=== PATIENT | male | born 1980 | race Caucasian/White ===

== ENCOUNTER 2016-07-29 16:46 | Emergency (ER) | payer OTHER ==
--- NOTE | 2016-07-29 18:21 | ED ---
General Adult HPI - General Chief complaint: Extremity Injury, Upper Stated complaint: Left Thumb Pain Time Seen by Provider: 07/29/16 18:01 Source: patient, RN notes reviewed Mode of arrival: ambulatory Limitations: no limitations - History of Present Illness Initial comments: This is a 35-year-old male presents with chronic left thumb pain. Patient states he has had multiple injuries to the left thumb over the last 3 years and has never had them checked out. Patient states the pain over the last 3 months has been increasing. Patient states over the last 2 days the pain has been worse. Patient denies any recent injury to the left thumb that could have caused the increased pain. Patient admits to some increased swelling to the left thumb and difficulty flexing and extending the thumb of the left hand. Patient states he is going on vacation and was hoping to not be in pain during vacation. Patient states he works with his hands for his job. Patient denies any numbness/tingling or weakness. Patient denies any recent fever, chills, shortness breath, chest pain, abdominal pain, nausea/vomiting/diarrhea, back pain, hematuria, headache, or visual changes, or any other complaints. - Related Data Home Medications Medication Instructions Recorded Confirmed No Known Home Medications [No 10/25/14 07/29/16 Known Home Medications] Allergies Allergy/AdvReac Type Severity Reaction Status Date / Time No Known Allergies Allergy Verified 07/29/16 18:24 Review of Systems ROS Statement: Those systems with pertinent positive or pertinent negative responses have been documented in the HPI. ROS Other: All systems not noted in ROS Statement are negative. Past Medical History Past Medical History: No Reported History History of Any Multi-Drug Resistant Organisms: None Reported Past Surgical History: Hernia Repair, Joint Replacement, Orthopedic Surgery Past Psychological History: Anxiety Smoking Status: Former smoker Past Alcohol Use History: Occasional Past Drug Use History: None Reported General Exam - General Exam Comments Initial Comments: General: The patient is awake and alert, in no distress, and does not appear acutely ill. Neck: The neck is supple, there is no tenderness or JVD. Cardiovascular: There is a regular rate and rhythm. No murmur, rub or gallop is appreciated. Respiratory: Lungs are clear to auscultation, respirations are non-labored, breath sounds are equal. No wheezes, stridor, rales, or rhonchi. Musculoskeletal: Patient is able to touch the left thumb to the pinky but there is limited range of motion with flexion and extension at the first MCP joint. There is some mild swelling around the first MCP joint of the left hand that is tender to palpation. There is no tenderness to palpation of the interphalangeal joint of the first digit of the left hand. Strength is 5/5 and Sensation intact. Capillary refill is normal at less than 2 seconds and radial pulses are 2+ bilaterally. Neurological: A&O x 3. CN II-XII intact, There are no obvious motor or sensory deficits. Coordination appears grossly intact. Speech is normal. Skin: Skin is warm and dry and no rashes or lesions are noted. Psychiatric: Normal mood and affect. Limitations: no limitations Course Vital Signs 07/29/16 17:10 Temperature 97.8 F Pulse Rate 68 Respiratory 18 Rate Blood Pressure 150/85 O2 Sat by Pulse 99 Oximetry Medical Decision Making - Medical Decision Making This is a 35-year-old male presents with an exacerbation of chronic left thumb pain. On physical exam Patient is able to touch the left thumb to the pinky but there is limited range of motion with flexion and extension at the first MCP joint. There is some mild swelling around the first MCP joint of the left hand that is tender to palpation. There is no tenderness to palpation of the interphalangeal joint of the first digit of the left hand. Strength is 5/5 and Sensation intact. Capillary refill is normal at less than 2 seconds and radial pulses are 2+ bilaterally. An x-ray of the left hand was done and reviewed joint: No evidence of fracture, dislocation, or soft tissue swelling. Reported by Dr. Azul. Discussed results with patient. I discussed rest, ice, elevate and use Miguelangel wrap for compression. I discussed [id number] Tylenol and/or Motrin as needed for any pain symptoms. Discussed use of the thumb spica splint. I discussed follow-up with orthopedics due to chronic nature of pain. I discussed follow-up with the patient's primary care physician. Patient was given a primary care physician referral today. I discussed return parameters. Discussed that patient should follow up with PCP in one to 2 days or return to the [facility] for any worsening symptoms or for any further concerns. Patient was receptive to this plan and patient will be discharged home. Disposition Clinical Impression: Pain of left thumb Disposition: HOME SELF-CARE Condition: Good Instructions: Finger Sprain (ED) Additional Instructions: Please rest, ice, elevate and use Miguelangel wrap for compression. Ferrell thumb spica splint for immobilization. Please use [id number] Tylenol and/or Motrin as needed for any pain. Please follow-up with orthopedics in the next 1-2 days. Please follow-up with family doctor in the next 2 days of symptoms have not improved. Please return to emergency room if the symptoms increase or worsen or for any other concerns. Referrals: None,Stated [Primary Care Provider] - 1-2 days Tip Ramirez MD [Medical Doctor] - 1-2 days Forest Lim MD [REFERRING] - 1-2 days Gilma Covington III, MD [STAFF PHYSICIAN] - 1-2 days Vangie Shin MD [STAFF PHYSICIAN] - 1-2 days Time of Disposition: 19:42
--- NOTE | 2016-07-29 19:00 | XR ---
EXAMINATION TYPE: XR hand complete LT DATE OF EXAM: 07/29/2016 6:34 PM COMPARISON: NONE HISTORY: Thumb pain for 3 months with no known injury. History of multiple injuries to the left thumb but no recent injury. Pain has increased in the last few days. TECHNIQUE: 3 views of the left hand were obtained. FINDINGS: Small well-corticated, likely accessory ossicle is seen at the distal interphalangeal joint of the thumb or first digit. There is no evidence of fracture or dislocation. There is no evidence o f acute or chronic osseous pathology. No soft tissue abnormalities. No radiopaque foreign bodies. I s paces are maintained. IMPRESSION: No evidence of fracture, dislocation, or soft tissue swelling.
[2016-07-29 19:57] VITALS: BP 146/85; PULSE 72; RESP 16; TEMP 98.1
== END 2016-07-29 19:45 | disposition home or self-care (01) ==
LOC: EC 16:46
DX: M79.645 Pain in left finger(s) (principal); Z87.891 Personal history of nicotine dependence; M79.89 Other specified soft tissue disorders
CPT/HCPCS: 99283

== ENCOUNTER → 2016-11-01 | Outpatient (CLI) | payer OTHER ==
[2016-11-01 09:19] LABS: Basophils % (A) 1 %; CH 30.9; CHCM 34.3; Eosinophils # (A) 0.2 k/uL (0-0.7); Eosinophils % (A) 4 %; HCT 48.3 % (39.0-53.0); HDW 2.47; HGB 16.2 gm/dL (13.0-17.5); Luc # (Auto) 0.18; Luc % (Auto) 3; Lymphocytes # (A) 1.8 k/uL (1.0-4.8); Lymphocytes % (A) 34 %; MCH 30.4 pg (25.0-35.0); MCHC 33.6 g/dL (31.0-37.0); MCV 90.4 fL (80.0-100.0); Mean Platelet Volume 6.7; Monocytes # (A) 0.4 k/uL (0-1.0); Monocytes % (A) 7 %; Neutrophils # (A) 2.7 k/uL (1.3-7.7); Neutrophils % (A) 51 %; RBC 5.34 m/uL (4.30-5.90); RDW 12.6 % (11.5-15.5); WBC 5.4 k/uL (3.8-10.6); WBC (Perox) 5.42
[2016-11-01 10:00] LABS: ALT 49 U/L (21-72); AST 33 U/L (17-59); Alkaline Phosphatase 48 U/L (38-126); Anion Gap 9 mmol/L; Blood Urea Nitrogen 11 mg/dL (9-20); Calcium 9.4 mg/dL (8.4-10.2); Carbon Dioxide 24 mmol/L (22-30); Chloride 109 mmol/L (98-107); Cholesterol 211 mg/dL (<200); Glucose 102 mg/dL (74-99); HDL Cholesterol 49 mg/dL (40-60); Non-African American GFR(MDRD) >60 (>60 ml/min/1.73 sqM); Potassium 4.5 mmol/L (3.5-5.1); Sodium 142 mmol/L (137-145); Total Bilirubin 0.6 mg/dL (0.2-1.3); Total Protein 7.2 g/dL (6.3-8.2); Triglycerides 80 mg/dL (<150)
[2016-11-01 10:42] LABS: Hemoglobin A1C 5.3 % (4.2-6.1)
[2016-11-02 07:23] LABS: HIV-1/HIV-2 Ab Screen NONREAC (NON REAC)
[2016-11-04 12:32] LABS: Hepatitis B Core IgM Index 0.02
== END | disposition home or self-care (01) ==
LOC: LABWHC1 08:27
PROVIDERS: ATTEND Physician Assistant
DX: Z00.00 Encounter for general adult medical examination without abnormal findings (principal); R53.82 Chronic fatigue, unspecified; Z20.2 Contact with and (suspected) exposure to infections with a predominantly sexual mode of transmission; Z11.8 Encounter for screening for other infectious and parasitic diseases
CPT/HCPCS: 36415; 80053; 80061; 82306; 83036; 84443; 85025; 86705; 86709; 87340; 87389; 87491; 87591

== ENCOUNTER → 2018-10-27 | Outpatient (CLI) | payer OTHER | LOC: RADMRIMAIN 06:55 | PROVIDERS: ATTEND Family Medicine | DX: Z53.9 Procedure and treatment not carried out, unspecified reason (principal) ==

== ENCOUNTER → 2020-05-27 | Outpatient (CLI) | payer OTHER ==
[2020-05-27 13:54] LABS: Appearance,Urine Clear (Clear); Bilirubin,Urine Negative (Negative); Blood,Urine Negative (Negative); Color,Urine Light Yellow; Glucose,Urine (UA) Negative (Negative); Ketones,Urine Negative (Negative); Leukocyte Esterase,Urine Negative (Negative); Nitrite,Urine Negative (Negative); PH, Urine 6.5 (5.0-8.0); Protein,Urine Negative (Negative); Urobilinogen,Urine <2.0 mg/dL (<2.0)
[2020-05-27 13:55] LABS: Basophils % (A) 1 %; Eosinophils # (A) 0.2 k/uL (0-0.7); Eosinophils % (A) 4 %; HCT 47.3 % (39.0-53.0); HGB 15.8 gm/dL (13.0-17.5); Lymphocytes % (A) 37 %; MCH 30.1 pg (25.0-35.0); MCHC 33.5 g/dL (31.0-37.0); Mean Platelet Volume 6.7; Monocytes # (A) 0.3 k/uL (0-1.0); Monocytes % (A) 6 %; Neutrophils # (A) 2.7 k/uL (1.3-7.7); Neutrophils % (A) 50 %; Platelet Count 270 k/uL (150-450); RBC 5.26 m/uL (4.30-5.90); RDW 12.6 % (11.5-15.5); WBC 5.4 k/uL (3.8-10.6)
[2020-05-27 19:21] LABS: African American GFR (CKD) 122.5 (60.0-200.0); Albumin 4.5 g/dL (3.80-4.90); Albumin/Globulin Ratio 1.73 (1.60-3.17); BUN/Creat Ratio 14.44 Ratio (12.00-20.00); Calcium 9.9 mg/dL (8.7-10.3); Globulin 2.6 g/dL (1.6-3.3); Non-African American GFR(CKD) 105.7 (60.0-200.0); Potassium 4.1 mmol/L (3.5-5.5); Total Bilirubin 0.6 mg/dL (0.2-1.2); Total Protein 7.1 g/dL (6.2-8.2)
[2020-05-28 04:31] LABS: INR 0.97 (0.90-1.11); Prothrombin Time 10.5 sec (9.9-11.9)
== END | disposition home or self-care (01) ==
LOC: LABWHC1 12:28
PROVIDERS: ATTEND Neurological Surgery
DX: M50.123 Cervical disc disorder at C6-C7 level with radiculopathy (principal)
CPT/HCPCS: 36415; 80053; 81003; 85025; 85610; 85730; 87070

== ENCOUNTER → 2020-05-28 | Outpatient (CLI) | payer OTHER | END | disposition home or self-care (01) | LOC: LABWHC1 14:34 | PROVIDERS: ATTEND Neurological Surgery | DX: M50.123 Cervical disc disorder at C6-C7 level with radiculopathy (principal) ==

== ENCOUNTER → 2020-06-06 | Outpatient (CLI) | payer OTHER | END | disposition home or self-care (01) | LOC: LABWHC1 12:08 | PROVIDERS: ATTEND Neurological Surgery | DX: M50.123 Cervical disc disorder at C6-C7 level with radiculopathy (principal) ==

== ENCOUNTER → 2022-01-15 | Outpatient (CLI) | payer OTHER ==
[2022-01-15 11:06] LABS: Appearance,Urine Clear (Clear); Bilirubin,Urine Negative (Negative); Blood,Urine Negative (Negative); Color,Urine Light Yellow; Glucose,Urine (UA) Negative (Negative); Ketones,Urine Negative (Negative); Leukocyte Esterase,Urine Negative (Negative); Nitrite,Urine Negative (Negative); PH, Urine 7.5 (5.0-8.0); Protein,Urine Negative (Negative); Urobilinogen,Urine <2.0 mg/dL (<2.0)
[2022-01-15 14:37] LABS: Basophils # (A) 0.05 X 10*3/uL (0.00-0.10); Eosinophils # (A) 0.19 X 10*3/uL (0.04-0.35); Eosinophils % (A) 3.7 %; HCT 46.4 % (39.6-50.0); HGB 15.3 g/dL (13.0-17.0); Immature Grans, Automated 0.2 %; Lymphocytes # (A) 1.72 X 10*3/uL (0.90-5.00); Lymphocytes % (A) 33.2 %; MCH 30.3 pg (27.0-32.0); MCV 91.9 fL (80.0-97.0); Mean Platelet Volume 10.5 fL (9.5-12.2); Monocytes # (A) 0.51 X 10*3/uL (0.20-1.00); Monocytes % (A) 9.8 %; NRBC Per 100 WBC 0 /100 WBCS (0.0-0.0); Neutrophils % (A) 52.1 %; Platelet Count 284 X 10*3/uL (140-440); RBC 5.05 X 10*6/uL (4.40-5.60); RDW 12.5 % (11.5-14.5); WBC 5.18 X 10*3/uL (4.50-10.00)
[2022-01-15 15:45] LABS: Erythrocyte Sedimentation Rate 5 mm/Hr (0-15)
[2022-01-15 16:14] LABS: ALT 48 U/L (10-49); AST 33 U/L (14-35); African American GFR (CKD) 120.8 (60.0-200.0); Albumin 4.7 g/dL (3.8-4.9); Albumin/Globulin Ratio 1.62 (1.60-3.17); Alkaline Phosphatase 70 U/L (41-126); Blood Urea Nitrogen 15.3 mg/dL (9.0-27.0); C Reactive Protein <0.30 mg/dL (0.00-0.80); Calcium 9.6 mg/dL (8.7-10.3); Carbon Dioxide 24.3 mmol/L (20.0-27.5); Chloride 105 mmol/L (96-109); Chol/HDL Ratio 4.78 Ratio; Globulin 2.9 g/dL (1.6-3.3); Glucose 105 mg/dL (70-110); Non-African American GFR(CKD) 104.2 (60.0-200.0); Sodium 139 mmol/L (135-145); Total Protein 7.6 g/dL (6.2-8.2); Uric Acid 5.2 mg/dL (3.7-8.7); VLDL Calculation 17.92 mg/dL (5.00-40.00)
[2022-01-15 16:25] LABS: Rheumatoid Factor, Qnt <10 IU/mL (0-15)
== END | disposition home or self-care (01) ==
LOC: LABWHC1 09:16
PROVIDERS: ATTEND Family Medicine
DX: Z00.00 Encounter for general adult medical examination without abnormal findings (principal); M25.50 Pain in unspecified joint; E02 Subclinical iodine-deficiency hypothyroidism
CPT/HCPCS: 36415; 80053; 80061; 81003; 82306; 84153; 84439; 84443; 84481; 84550; 85025; 85652; 86038; 86140; 86431

== ENCOUNTER 2024-05-23 16:24 | Emergency (ER) | payer OTHER ==
--- NOTE | 2024-05-23 16:35 | ED ---
Male Urogenital HPI - General Chief complaint: Recheck/Abnormal Lab/Rx Stated complaint: testicular pain Time Seen by Provider: 05/23/24 16:34 Source: patient, RN notes reviewed, old records reviewed Mode of arrival: ambulatory Limitations: no limitations - History of Present Illness Initial comments: This is a 43-year-old male to ER for testicular pain burning with urination with new sexual partner. Concern for STI MD Complaint: testicle pain, testicle swelling, dysuria -: days(s) Location: penis Radiation: none Severity: moderate Severity scale (1-10): 4 Quality: burning Consistency: intermittent Improves with: none Worsens with: urination new sexual partner Reports: denies other symptoms - Related Data Home Medications Medication Instructions Recorded Confirmed No Known Home Medications 10/25/14 07/29/16 Allergies Allergy/AdvReac Type Severity Reaction Status Date / Time No Known Allergies Allergy Verified 07/29/16 18:24 Review of Systems ROS Statement: Those systems with pertinent positive or pertinent negative responses have been documented in the HPI. ROS Other: All systems not noted in ROS Statement are negative. Past Medical History Past Medical History: No Reported History History of Any Multi-Drug Resistant Organisms: None Reported Past Surgical History: Hernia Repair, Joint Replacement, Orthopedic Surgery Past Psychological History: Anxiety Smoking Status: Never smoker Past Alcohol Use History: Occasional Past Drug Use History: Marijuana General Exam Limitations: no limitations General appearance: alert, in no apparent distress Head exam: Present: atraumatic, normocephalic, normal inspection Eye exam: Present: normal appearance, PERRL, EOMI. Absent: scleral icterus, conjunctival injection, periorbital swelling ENT exam: Present: normal exam, mucous membranes moist Neck exam: Present: normal inspection. Absent: tenderness, meningismus, lymphadenopathy Respiratory exam: Present: normal lung sounds bilaterally. Absent: respiratory distress, wheezes, rales, rhonchi, stridor Cardiovascular Exam: Present: regular rate, normal rhythm, normal heart sounds. Absent: systolic murmur, diastolic murmur, rubs, gallop, clicks GI/Abdominal exam: Present: soft, normal bowel sounds. Absent: distended, tenderness, guarding, rebound, rigid Extremities exam: Present: normal inspection, full ROM, normal capillary refill. Absent: tenderness, pedal edema, joint swelling, calf tenderness Back exam: Present: normal inspection Neurological exam: Present: alert, oriented X3, CN II-XII intact Psychiatric exam: Present: normal affect, normal mood Skin exam: Present: warm, dry, intact, normal color. Absent: rash Course Vital Signs 05/23/24 16:26 Temperature 98.2 F Pulse Rate 78 Respiratory 20 Rate Blood Pressure 128/88 O2 Sat by Pulse 99 Oximetry - Reevaluation(s) Reevaluation #1: 05/23/24 17:02 Medical records reviewed Reevaluation #2: 05/23/24 17:11 Patient symptoms unchanged Reevaluation #3: 05/23/24 17:11 Patient informed of results and questions answered Reevaluation #4: Was pt. sent in by a medical professional or institution (, [facility], PHYSICIAN VICE PRESIDENT, urgent care, hospital, or residential...) When possible be specific @ -no Did you speak to anyone other than the patient for history (EMS, parent, family, police, friend...)? What history was obtained from this source @ -no Did you review nursing and triage notes (agree or disagree)? Why? @ -agree Are old charts reviewed (outside hosp., previous admission, EMS record, old EKG, old radiological studies, urgent care reports/EKG's, residential records)? Report findings @ -yes Differential Diagnosis (chest pain, altered mental status, abdominal pain women, abdominal pain men, vaginal bleeding, weakness, fever, dyspnea, syncope, headache, dizziness, GI bleed, back pain, seizure, CVA, palpatations, mental health, musculoskeletal)? @ -prior EKG interpreted by me (3pts min.). @ -yes X-rays interpreted by me (1pt min.). @ -yes negative for acute disease CT interpreted by me (1pt min.). @ -no U/S interpreted by me (1pt. min.). @ -no What testing was considered but not performed or refused? (CT, X-rays, U/S, labs)? Why? @ -none What meds were considered but not given or refused? Why? @ -none Did you discuss the management of the patient with other professionals (professionals i.e. [facility] Ramirez, PHYSICIAN VICE PRESIDENT, lab, RT, psych nurse, child protective services social worker, divorce lawyer, teacher, sustainability officer, immigration case worker)? Give summary @ -no Was smoking cessation discussed for >3mins.? @ -no Was critical care preformed (if so, how long)? @ -no Were there social determinants of health that impacted care today? How? (Homelessness, low income, unemployed, alcoholism, drug addiction, transportation, low edu. Level, literacy, decrease access to med. care, shelter, rehab)? @ -none Was there de-escalation of care discussed even if they declined (Discuss DNR or withdrawal of care, Hospice)? DNR status @ -no What co-morbidities impacted this encounter? (DM, HTN, Smoking, COPD, CAD, Cancer, CVA, ARF, Chemo, Hep., AIDS, mental health diagnosis, sleep apnea, morbid obesity)? @ -none Was patient admitted / discharged? Hospital course, mention meds given and route, prescriptions, significant lab abnormalities, going to OR and other pertinent info. @ - Undiagnosed new problem with uncertain prognosis? @ -no Drug Therapy requiring intensive monitoring for toxicity (Heparin, Nitro, Insulin, Cardizem)? @ -no Were any procedures done? @ -no Diagnosis/symptom? @ - Acute, or Chronic, or Acute on Chronic? @ -Acute Uncomplicated (without systemic symptoms) or Complicated (systemic symptoms)? @ -Complicated Side effects of treatment? @ -no Exacerbation, Progression, or Severe Exacerbation? @ -exacerbation Poses a threat to life or bodily function? How? (Chest pain, [place], [place], pneumonia, PE, COPD, DKA, ARF, appy, cholecystitis, CVA, Diverticulitis, Homicidal, Suicidal, threat to staff... and all critical care pts) @ -yes Reevaluation #5: Differential Abdominal Pain Men: Appendicitis, cholecystitis, diverticulosis, ischemic bowel, pancreatitis, hepatitis, UTI, gastroenteritis, AAA, incarcerated hernia, bowel obstruction, constipation, inflammatory bowel, hepatitis, peptic ulcer disease, splenic infa rction, perforated viscus, testicular torsion, this is not meant to be an all- inclusive list Medical Decision Making - Medical Decision Making 43 male to ER for your urethritis male urethritis STI, patient was given antibiotics and can be discharged home - Lab Data Lab Results 05/23/24 Range/Units 16:44 Urine Color Colorless Urine Appearance Clear (Clear) Urine pH 6.5 (5.0-8.0) Ur Specific [place] 1.003 (1.001-1.035) Urine Protein Negative (Negative) Urine Glucose (UA) Negative (Negative) Urine Ketones Negative (Negative) Urine Blood Negative (Negative) Urine Nitrite Negative (Negative) Urine Bilirubin Negative (Negative) Urine Urobilinogen <2.0 (<2.0) mg/dL Ur Leukocyte Esterase Negative (Negative) - Radiology Data Radiology results: report reviewed (Ultrasound scrotum negative for acute disease), image reviewed Disposition Clinical Impression: Urethritis Disposition: HOME SELF-CARE Condition: Good Instructions (If sedation given, give patient instructions): Urinary Tract Infection in Men (ED) Is patient prescribed a controlled substance at d/c from ED?: No Referrals: Sae Elliott DO [Primary Care Provider] - 1-2 days Time of Disposition: 17:20
[2024-05-23 16:57] LABS: Appearance,Urine Clear (Clear); Bilirubin,Urine Negative (Negative); Blood,Urine Negative (Negative); Color,Urine Colorless; Glucose,Urine (UA) Negative (Negative); Ketones,Urine Negative (Negative); Leukocyte Esterase,Urine Negative (Negative); Nitrite,Urine Negative (Negative); PH, Urine 6.5 (5.0-8.0); Protein,Urine Negative (Negative); Specific Gravity,Urine 1.003 (1.001-1.035); Urobilinogen,Urine <2.0 mg/dL (<2.0)
[2024-05-23] MEDS: PHENAZOPYRIDINE 200 MG TAB PO STA (17:35)
--- NOTE | 2024-05-23 18:01 | US ---
EXAMINATION TYPE: US scrotum with doppler. DATE OF EXAM: 05/23/2024 COMPARISON: CT 2012, US 2012 CLINICAL INDICATION: Male, 43 years old with history of pain; Hx vasectomy with reversal. Pain x 1 we ek right testicle. TECHNIQUE: Grayscale, color Doppler and spectral Doppler imaging of the scrotum. FINDINGS: EXAM MEASUREMENTS: TESTICLES: Right Testicle: 5.0 x 3.6 x 2.1 cm Left Testicle: 5.0 x 2.8 x 2.3 cm EPIDIDYMIS HEAD: Right Epididymis: 0.9 x 0.7 x 0.8 cm. *Anechoic area seen = 0.5 x 0.5 x 0.5 cm. Left Epididymis: 0.9 x 1.2 x 1.0 cm Doppler performed to assess for testicular vascularity;\ bilateral color flow and spectral waveforms are seen. Presence of hydroceles: Yes on the right = 1.8 x 0.9 x 0.6 cm. Presence of varicoceles: Prominent vessels seen lateral to right testicle measure up to 2.2 mm. IMPRESSION: 1. Appropriate arterial and venous spectral waveforms to the testes. 2. Trace right hydrocele. 3. Prominent vessels borderline varicocele. [facility], , 05/23/2024 5:58 PM
[2024-05-23] MEDS: cefTRIAXone 250 MG VIAL IM STA (18:20)
[2024-05-23] MEDS: AZITHROMYCIN 500 MG TAB PO STA (18:22)
[2024-05-23 18:34] VITALS: BP 126/76; PULSE 82; RESP 18; TEMP 97.9
== END 2024-05-23 18:32 | disposition home or self-care (01) ==
LOC: EC 16:24
DX: N34.2 Other urethritis (principal); N43.3 Hydrocele, unspecified; I86.1 Scrotal varices
CPT/HCPCS: 81003; 93975; 76870; 99284; 96372; J0696; 96374

== ENCOUNTER → 2024-05-25 | Outpatient (CLI) | payer OTHER ==
--- NOTE | 2024-05-25 14:48 | CT ---
EXAMINATION TYPE: CT right knee - MIKHAIL Protocol DATE OF EXAM: 05/25/2024 2:35 PM COMPARISON: . Extremity radiograph same day. CLINICAL INDICATION: Male, 43 years old with history of M17.11 UNILATERAL PRIMARY OSTEOARTHRITIS, RIG HT KN; PHH, pre-surgical planning right knee,pain, TECHNIQUE: Axial images were obtained of the CT right knee - MIKHAIL Protocol, Additional coronal and sa gittal reformatted images and soft tissue and bone window were obtained for review. Contrast used: mL of , (None if empty) Oral contrast used: (None if empty) CT DLP: 739 mGycm, Automated exposure control for dose reduction was used. FINDINGS: The visualized portion of the hips demonstrate mild osteoarthrosis changes with osteophyte formation of the acetabulum. No acute intrapelvic process. The bony structures of the pelvis are intact. The visualized knee demonstrates osteophyte formation of the tibial plateau, the patella and femoral condyles. There is joint space narrowing and subchondral sclerosis. The femoral condyle medially dem onstrates subtle step-off along the articular surface series 11 image 172 which extends along the con dyle. Additionally there is subchondral cystic change and sclerosis series 10 image 83. No evidence o f fracture. Visualized ankle demonstrates multifocal osteoarthrosis changes with osteophyte formation and mild sol int space narrowing. No evidence of fractures. The appendix is normal. IMPRESSION: 1. Right knee medial femoral condyle articular surface tiny articular surface depression along with subchondral sclerosis and cystic change. 2. Mild to moderate moderate bilateral hip osteoarthrosis. [facility], , 05/25/2024 2:46 PM
== END | disposition home or self-care (01) ==
LOC: RADCTMAIN 13:51
PROVIDERS: ATTEND Orthopaedic Surgery
DX: M17.11 Unilateral primary osteoarthritis, right knee (principal); M16.0 Bilateral primary osteoarthritis of hip; M25.761 Osteophyte, right knee